=== PATIENT | female | born 1955 | race African-American/Black ===

== ENCOUNTER 2018-12-13 19:20 | Inpatient (IN) | payer MEDICARE, MEDICAID ==
[~2018-12-13] VITALS: Ht 175.3 cm; Wt 96.3 kg
[2018-12-13] MEDS ORDERED: SODIUM CHLORIDE 0.9% 1,000 ML IV ONE (19:34)
[2018-12-13 20:23] LABS: BASOPHILS % 0.6 % (0.0-2.0); EOSINOPHILS % 1.7 % (0.0-5.0); HEMATOCRIT. 36.2 % (36.0-48.0); HEMOGLOBIN. 12.3 g/dL (12.0-16.0); LYMPHOCYTES % 42.9 % (20.0-50.0); MEAN CORPUSCULAR HEMOGLOBIN 31.8 pg (28.0-32.0); MEAN CORPUSCULAR VOLUME 93.4 fL (81.0-99.0); MEAN PLATELET VOLUME 8.5 fl (7.4-10.4); MONOCYTES % 9.6 % (2.0-8.0); NEUTROPHILS % 45.2 % (40.0-76.0); PLATELET 166 x1000/uL (130-400); RED BLOOD CELL COUNT 3.88 mill/uL (4.2-5.4); RED CELL DISTRIBUTION WIDTH 13.1 % (11.6-14.6)
[2018-12-13 20:25] LABS: CHLORIDE 110 mEq/L (98-107)
[2018-12-13 20:26] LABS: INR 1.1; PROTHROMBIN TIME 10.9 sec (9.1-11.1)
[2018-12-13] MEDS ORDERED: LORAZEPAM 2MG/ML CPJ IV ONE ×2 (20:30→21:30)
[2018-12-14] MEDS ORDERED: MAGNESIUM/ALUMINUM HYDROXIDE/SIMETHICONE 30ML UDC PO PRN
[2018-12-14] MEDS ORDERED: CLONIDINE 0.1MG TABLET PO PRN
[2018-12-14] MEDS ORDERED: DIPHENHYDRAMINE 50MG/ML VIAL IV PRN
[2018-12-14] MEDS ORDERED: ONDANSETRON HCL 4MG/2ML INJ IV PRN
[2018-12-14] MEDS ORDERED: ACETAMINOPHEN 325MG TABLET PO PRN
[2018-12-14] MEDS ORDERED: ACETAMINOPHEN 650MG SUPP PR PRN
[2018-12-14] MEDS ORDERED: DOCUSATE SODIUM 100MG CAPSULE PO PRN
[2018-12-14] MEDS ORDERED: IPRATROPIUM/ALBUTEROL 0.5-3(2.5)MG/3ML NEB INH PRN
[2018-12-14] MEDS ORDERED: GUAIFENESIN 200MG/10ML SUGAR FREE UDC PO PRN
[2018-12-14] MEDS ORDERED: LEVETIRACETAM 500MG PREMIX 100 ML IV SCH (03:00)
[2018-12-14 06:10] LABS: BASOPHILS % 0.5 % (0.0-2.0); EOSINOPHILS % 1.9 % (0.0-5.0); HEMATOCRIT. 35.5 % (36.0-48.0); HEMOGLOBIN. 12.1 g/dL (12.0-16.0); LYMPHOCYTES % 45.6 % (20.0-50.0); MEAN CORPUSCULAR HEMOGLOBIN 31.8 pg (28.0-32.0); MEAN CORPUSCULAR VOLUME 93.5 fL (81.0-99.0); MEAN PLATELET VOLUME 8.4 fl (7.4-10.4); MONOCYTES % 11.4 % (2.0-8.0); NEUTROPHILS % 40.6 % (40.0-76.0); PLATELET 148 x1000/uL (130-400); RED CELL DISTRIBUTION WIDTH 13.1 % (11.6-14.6)
[2018-12-14 06:14] LABS: CHLORIDE 112 mEq/L (98-107)
[2018-12-14 06:26] LABS: LDL CHOLESTEROL 52 mg/dL (5-100)
[2018-12-14 06:27] LABS: HDL CHOLESTEROL 53 mg/dL (40-59)
[2018-12-14] MEDS ORDERED: NA PHOS,M-B/NA PHOS,DI-BA ENEMA 118ML PR PRN (09:00)
[2018-12-14 14:02] VITALS: BP 148/76
[2018-12-14] MEDS: LEVETIRACETAM 500MG TABLET PO SCH ×2 (15:18→23:17)
[2018-12-14 15:44] VITALS: BP 135/65
[2018-12-14 16:00] VITALS: BP 135/65
[2018-12-14 20:00] VITALS: BP 140/71
[2018-12-14] MEDS: SODIUM CHLORIDE 0.9% INJ 3ML FLUSH IVF SCH (21:18)
[2018-12-14 22:00] VITALS: BP 141/70
[2018-12-14 22:31] LABS: CLARITY URINE CLEAR (CLEAR); COLOR URINE YELLOW (YELLOW); KETONES URINE NEGATIVE (NEGATIVE); LEUKOCYTE ESTERASE URINE 1+ (NEGATIVE); NITRITE URINE NEGATIVE (NEGATIVE); OCCULT BLOOD URINE NEGATIVE (NEGATIVE); PH URINE 5.5 (4.5-8.0); PROTEIN URINE NEGATIVE (NEGATIVE); SPECIFIC GRAVITY URINE 1.019 (1.005-1.030)
[2018-12-14 22:41] LABS: *AMPHETAMINES SCREEN URINE NEGATIVE (NEGATIVE); *BARBITURATES SCREEN URINE NEGATIVE (NEGATIVE); *BENZODIAZEPINES SCREEN URINE NEGATIVE (NEGATIVE)
[2018-12-14 22:42] LABS: *COCAINE SCREEN URINE NEGATIVE (NEGATIVE); CANNABINOID URINE SCREEN NEGATIVE (NEGATIVE); METHADONE URINE SCREEN NEGATIVE (NEGATIVE); OPIATES URINE SCREEN NEGATIVE (NEGATIVE); PHENCYCLIDINE URINE SCREEN NEGATIVE (NEGATIVE)
[2018-12-15] VITALS (8 sets, daily range): BP systolic 121–145; BP diastolic 58–78
[2018-12-15] MEDS: SODIUM CHLORIDE 0.9% INJ 3ML FLUSH IVF SCH ×2 (06:01→14:00)
[2018-12-15] MEDS: LEVETIRACETAM 500MG TABLET PO SCH (08:23)
[2018-12-15] MEDS ORDERED: BENA5TAB6 MT (08:36)
[2018-12-15] MEDS ORDERED: AMLO2.5T2 MT (08:36)
[2018-12-15] MEDS ORDERED: BUPR75TA8 MT (08:36)
[2018-12-15] MEDS ORDERED: GLIM1TAB2 MT (08:36)
[2018-12-15] MEDS ORDERED: SIMV10TA2 MT (08:37)
[2018-12-15] MEDS ORDERED: KEPP500 MT (15:05)
== END 2018-12-15 15:57 | disposition home or self-care (01) | DRG 100 ==
LOC: ER 19:20 → EDBEDREQTM 21:32 → EDBEDREQ 21:32 → EDBEDREQSVC 21:32 → ENRESERV 12-14 09:57 → 3WST 12-14 14:00 → 8WST 12-15 10:19
PROVIDERS: ADMIT Family Medicine; ATTEND Family Medicine
DX: G40.909 Epilepsy, unspecified, not intractable, without status epilepticus (principal); G93.41 Metabolic encephalopathy; N18.6 End stage renal disease; I12.0 Hypertensive chronic kidney disease with stage 5 chronic kidney disease or end stage renal disease; E11.22 Type 2 diabetes mellitus with diabetic chronic kidney disease; E78.5 Hyperlipidemia, unspecified; F41.9 Anxiety disorder, unspecified; Z87.891 Personal history of nicotine dependence; Z99.2 Dependence on renal dialysis; Z88.6 Allergy status to analgesic agent; Z79.899 Other long term (current) drug therapy
CPT/HCPCS: 36415; 71045; 80061; 80305; 82962; 83605; 83880; 84484; 93005; 96361; 96374; 96376; 99285; J1953; J2060; J7030

== ENCOUNTER 2019-07-11 13:30 | Emergency (ER) | payer MEDICARE, MEDICAID ==
[~2019-07-11] VITALS: Ht 172.7 cm; Wt 74.0 kg
[~2019-07-11 13:30] MED LIST: AMLO2.5T2 MT; BENA5TAB6 MT; BUPR75TA8 MT; GLIM1TAB2 MT; KEPP500 MT; SIMV10TA2 MT
[2019-07-11] MEDS ORDERED: ONDANSETRON HCL 4MG/2ML INJ IV STA (14:47)
[2019-07-11] MEDS ORDERED: SODIUM CHLORIDE 0.9% 1,000 ML IV ONE (14:47)
[2019-07-11] MEDS ORDERED: MORPHINE SULFATE 4 MG/ML CPJ (NOT FOR IM USE) IV STA (14:47)
[2019-07-11] MEDS ORDERED: LIDOCAINE 1%/EPI 1:100,000 10 ML VIAL IJ ONE (15:00)
[2019-07-11] MEDS ORDERED: LEVETIRACETAM 1000MG/100ML 100 ML IV ONE (15:00)
[2019-07-11] MEDS ORDERED: TETANUS, DIPHTHERIA, PERTUSSIS VAC/PF 0.5ML (>7YR OLD) IM ONE (15:00)
[2019-07-11 15:02] LABS: BASOPHILS % 0.5 % (0.0-2.0); EOSINOPHILS % 1.6 % (0.0-5.0); HEMATOCRIT. 37.6 % (36.0-48.0); LYMPHOCYTES % 35.3 % (20.0-50.0); MEAN CORPUSCULAR HEMOGLOBIN 30.2 pg (28.0-32.0); MEAN CORPUSCULAR VOLUME 87.2 fL (81.0-99.0); MEAN PLATELET VOLUME 8.5 fl (7.4-10.4); MONOCYTES % 8.9 % (2.0-8.0); NEUTROPHILS % 53.7 % (40.0-76.0); PLATELET 169 x1000/uL (130-400); RED BLOOD CELL COUNT 4.31 mill/uL (4.2-5.4); RED CELL DISTRIBUTION WIDTH 14.6 % (11.6-14.6)
[2019-07-11 15:09] LABS: CHLORIDE 101 mEq/L (98-107)
[2019-07-11 15:10] LABS: PROTHROMBIN TIME 10.5 sec (9.6-11.0)
[2019-07-11 15:14] LABS: ETHANOL BLOOD < 10 mg/dL
[2019-07-11] MEDS ORDERED: POTASSIUM CHLORIDE 20MEQ TABLET SR PO ONE (15:15)
[2019-07-11] MEDS ORDERED: LIDOCAINE HCL/EPINEPHRINE 1%-EPI 1:100,000 20 ML VIAL INFIL NR (15:15)
[2019-07-11] MEDS ORDERED: ACETAMINOPHEN 325MG TABLET PO ONE (15:15)
[2019-07-11 15:22] LABS: CARBAMAZEPINE < 0.5 ug/mL (4-12); PHENOBARBITAL < 2.1 ug/mL (15.0-40.0)
[2019-07-11 15:38] LABS: CLARITY URINE CLEAR (CLEAR); COLOR URINE YELLOW (YELLOW); KETONES URINE NEGATIVE (NEGATIVE); LEUKOCYTE ESTERASE URINE TRACE (NEGATIVE); NITRITE URINE NEGATIVE (NEGATIVE); OCCULT BLOOD URINE NEGATIVE (NEGATIVE); PROTEIN URINE TRACE (NEGATIVE); SPECIFIC GRAVITY URINE 1.006 (1.005-1.030); UROBILINOGEN URINE 0.2 E.U./dL (0.2-1.0)
[2019-07-11 15:49] LABS: *AMPHETAMINES SCREEN URINE NEGATIVE (NEGATIVE); *BARBITURATES SCREEN URINE NEGATIVE (NEGATIVE); *BENZODIAZEPINES SCREEN URINE NEGATIVE (NEGATIVE); *COCAINE SCREEN URINE NEGATIVE (NEGATIVE); CANNABINOID URINE SCREEN PRESUMTIVE POSITIVE (NEGATIVE); PHENCYCLIDINE URINE SCREEN NEGATIVE (NEGATIVE)
[2019-07-11 15:50] LABS: METHADONE URINE SCREEN NEGATIVE (NEGATIVE); OPIATES URINE SCREEN NEGATIVE (NEGATIVE)
[2019-07-11] MEDS ORDERED: CEFTRIAXONE 1 G PREMIX 50 ML IV ONE (16:00)
[2019-07-11 19:40] VITALS: BP 136/67
== END 2019-07-11 20:12 | disposition home or self-care (01) ==
LOC: ER 13:30
DX: S01.01XA Laceration without foreign body of scalp, initial encounter (principal); S01.81XA Laceration without foreign body of other part of head, initial encounter; G40.909 Epilepsy, unspecified, not intractable, without status epilepticus; N39.0 Urinary tract infection, site not specified; F19.10 Other psychoactive substance abuse, uncomplicated; E87.6 Hypokalemia; X58.XXXA Exposure to other specified factors, initial encounter; Y93.89 Activity, other specified; Y92.89 Other specified places as the place of occurrence of the external cause; Y99.8 Other external cause status
CPT/HCPCS: 12004; 36415; 70450; 71045; 80053; 80156; 80165; 80184; 80185; 80305; 80320; 81003; 82962; 83605; 84484; 85025; 85610; 87086; 90715; 93005; 96365; 96375; 99284; J0696; J1953; J2270; J2405; J3490; J7030; G0480

== ENCOUNTER 2021-08-08 14:57 | Inpatient (IN) | payer MEDICARE, MEDICAID ==
[~2021-08-08] VITALS: Ht 177.8 cm; Wt 86.2 kg
[~2021-08-08 14:57] MED LIST changes: +GLIM1TAB MT; -GLIM1TAB2 MT
[2021-08-08] MEDS ORDERED: SODIUM CHLORIDE 0.9% 1,000 ML IV ONE (15:30)
[2021-08-08 15:46] LABS: BASOPHILS % 0.3 % (0.0-2.0); HEMATOCRIT. 32.7 % (36.0-48.0); HEMOGLOBIN. 11.4 g/dL (12.0-16.0); LYMPHOCYTES % 32.3 % (20.0-50.0); MEAN CORPUSCULAR HEMOGLOBIN 31.4 pg (28.0-32.0); MEAN CORPUSCULAR VOLUME 89.7 fL (81.0-99.0); MEAN PLATELET VOLUME 7.8 fl (7.4-10.4); MONOCYTES % 6.4 % (2.0-8.0); PLATELET 187 x1000/uL (130-400); RED BLOOD CELL COUNT 3.65 mill/uL (4.2-5.4); RED CELL DISTRIBUTION WIDTH 12.9 % (11.6-14.6)
[2021-08-08 15:53] LABS: CHLORIDE 108 mEq/L (98-107)
[2021-08-08 18:57] LABS: CLARITY URINE CLEAR (CLEAR); COLOR URINE YELLOW (YELLOW); KETONES URINE NEGATIVE (NEGATIVE); LEUKOCYTE ESTERASE URINE TRACE (NEGATIVE); NITRITE URINE NEGATIVE (NEGATIVE); OCCULT BLOOD URINE NEGATIVE (NEGATIVE); PH URINE 5.5 (4.5-8.0); PROTEIN URINE NEGATIVE (NEGATIVE); SPECIFIC GRAVITY URINE 1.007 (1.005-1.030)
[2021-08-08] MEDS ORDERED: DEXTROSE 50% WATER 50ML SYRINGE IV PRN (21:00)
[2021-08-08] MEDS ORDERED: LEVETIRACETAM 500 MG in SODIUM CHLORIDE 0.9% 100 ML IV SCH (21:00)
[2021-08-08] MEDS ORDERED: ACETAMINOPHEN 325MG TABLET PO PRN ×2 (21:00)
[2021-08-08] MEDS ORDERED: DIPHENHYDRAMINE 50MG/ML VIAL IV PRN (21:00)
[2021-08-08] MEDS ORDERED: ONDANSETRON HCL 4MG/2ML INJ IV PRN (21:00)
[2021-08-08] MEDS ORDERED: LORAZEPAM 2MG/ML CPJ IV PRN (21:00)
[2021-08-08] MEDS ORDERED: CLONIDINE 0.1MG TABLET PO PRN (21:00)
[2021-08-08] MEDS ORDERED: HYDRALAZINE 20MG/ML VIAL IV PRN ×2 (21:00→21:15)
[2021-08-08] MEDS: INSULIN LISPRO 100 UNITS/ML SUBCUT SCH (21:30)
[2021-08-08] MEDS ORDERED: LEVETIRACETAM 500MG PREMIX 100 ML IV SCH (21:30)
[2021-08-08] MEDS: SODIUM CHLORIDE 0.9% 1,000 ML IV SCH (22:17)
[2021-08-08] MEDS: BLOOD SUGAR DIAGNOSTIC STRIP TEST SCH (22:17)
[2021-08-09] VITALS (7 sets, daily range): BP systolic 140–169; BP diastolic 51–95
[2021-08-09] MEDS ORDERED: QUET300T2 MT (00:08)
[2021-08-09] MEDS ORDERED: PANT40TA51 MT (00:08)
[2021-08-09] MEDS ORDERED: QUET100T MT (00:08)
[2021-08-09] MEDS ORDERED: AMIT-188 MT (00:08)
[2021-08-09] MEDS ORDERED: LORAZEPAM 2MG/ML CPJ IV PRN (01:15)
[2021-08-09] MEDS ORDERED: AMITRIPTYLINE 50MG TABLET PO SCH (02:00)
[2021-08-09] MEDS: AMITRIPTYLINE 25MG TABLET PO SCH ×2 (02:07→21:17)
[2021-08-09] MEDS: INSULIN LISPRO 100 UNITS/ML SUBCUT SCH ×4 (06:01→21:00)
[2021-08-09] MEDS: BLOOD SUGAR DIAGNOSTIC STRIP TEST SCH ×4 (06:01→21:00)
[2021-08-09] MEDS: SODIUM CHLORIDE 0.9% 1,000 ML IV SCH ×2 (06:01→16:31)
[2021-08-09 06:19] LABS: BASOPHILS % 0.5 % (0.0-2.0); HEMATOCRIT. 32.5 % (36.0-48.0); HEMOGLOBIN. 11.2 g/dL (12.0-16.0); LYMPHOCYTES % 52.1 % (20.0-50.0); MEAN CORPUSCULAR HEMOGLOBIN 31.2 pg (28.0-32.0); MEAN CORPUSCULAR VOLUME 90.4 fL (81.0-99.0); MEAN PLATELET VOLUME 8.5 fl (7.4-10.4); NEUTROPHILS % 34.4 % (40.0-76.0); PLATELET 157 x1000/uL (130-400); RED CELL DISTRIBUTION WIDTH 12.9 % (11.6-14.6)
[2021-08-09 06:58] LABS: PHOSPHORUS 2.9 mg/dL (2.5-4.9)
[2021-08-09] MEDS: BUPROPION HCL 75MG TABLET PO SCH ×2 (09:03→21:17)
[2021-08-09] MEDS: AMLODIPINE 5MG TABLET PO SCH (09:03)
[2021-08-09] MEDS: BENAZEPRIL 10MG TABLET PO SCH (09:03)
[2021-08-09 09:12] LABS: *AMPHETAMINES SCREEN URINE NEGATIVE (NEGATIVE); *BARBITURATES SCREEN URINE NEGATIVE (NEGATIVE); *BENZODIAZEPINES SCREEN URINE NEGATIVE (NEGATIVE); *COCAINE SCREEN URINE NEGATIVE (NEGATIVE); METHADONE URINE SCREEN NEGATIVE (NEGATIVE)
[2021-08-09 09:13] LABS: CANNABINOID URINE SCREEN PRESUMTIVE POSITIVE (NEGATIVE); OPIATES URINE SCREEN PRESUMTIVE POSITIVE (NEGATIVE); PHENCYCLIDINE URINE SCREEN NEGATIVE (NEGATIVE)
[2021-08-09] MEDS ORDERED: KETOROLAC 30MG/ML VIAL IV PRN (11:45)
[2021-08-09] MEDS ORDERED: TRAMADOL 50MG TABLET PO PRN (12:45)
[2021-08-09] MEDS ORDERED: NALOXONE HCL 0.4MG/ML VIAL IV PRN (13:30)
[2021-08-09] MEDS ORDERED: HYDROCODONE/ACETAMINOPHEN 5/325MG TABLET PO PRN (13:30)
[2021-08-09] MEDS: BACLOFEN 10MG TABLET PO SCH ×2 (14:02→22:53)
[2021-08-09] MEDS ORDERED: ATORVASTATIN CALCIUM 20MG TABLET PO SCH (21:00)
[2021-08-09] MEDS ORDERED: QUETIAPINE FUMARATE 50MG TABLET PO SCH (21:00)
[2021-08-10] VITALS: BP 140/95
[2021-08-10] MEDS: SODIUM CHLORIDE 0.9% 1,000 ML IV SCH ×2 (02:47→12:45)
[2021-08-10 04:00] VITALS: BP 136/59
[2021-08-10] MEDS: BACLOFEN 10MG TABLET PO SCH ×2 (05:38→12:50)
[2021-08-10] MEDS: BLOOD SUGAR DIAGNOSTIC STRIP TEST SCH ×2 (06:40→11:34)
[2021-08-10] MEDS: INSULIN LISPRO 100 UNITS/ML SUBCUT SCH ×2 (07:10→11:34)
[2021-08-10 08:00] VITALS: BP 157/69
[2021-08-10] MEDS: AMLODIPINE 5MG TABLET PO SCH (08:10)
[2021-08-10] MEDS: BUPROPION HCL 75MG TABLET PO SCH (08:10)
[2021-08-10] MEDS: BENAZEPRIL 10MG TABLET PO SCH (08:11)
[2021-08-10 08:30] VITALS: BP 157/69
== END 2021-08-10 15:45 | disposition home or self-care (01) | DRG 391 ==
LOC: ER 14:57 → 7EST 19:53 → EDBEDREQ 19:55 → EDBEDREQTM 19:55 → ENRESERV 21:20
PROVIDERS: ADMIT Internal Medicine; ATTEND Internal Medicine
DX: K52.9 Noninfective gastroenteritis and colitis, unspecified (principal); N17.0 Acute kidney failure with tubular necrosis; G40.909 Epilepsy, unspecified, not intractable, without status epilepticus; I12.9 Hypertensive chronic kidney disease with stage 1 through stage 4 chronic kidney disease, or unspecified chronic kidney disease; N18.9 Chronic kidney disease, unspecified; E11.22 Type 2 diabetes mellitus with diabetic chronic kidney disease; E78.00 Pure hypercholesterolemia, unspecified; F41.1 Generalized anxiety disorder; G89.29 Other chronic pain; M54.5 Low back pain; Z60.2 Problems related to living alone; Z82.49 Family history of ischemic heart disease and other diseases of the circulatory system; Z83.3 Family history of diabetes mellitus; Z88.6 Allergy status to analgesic agent; Z79.899 Other long term (current) drug therapy; Z79.84 Long term (current) use of oral hypoglycemic drugs
CPT/HCPCS: 36415; 80048; 80053; 80305; 81003; 82962; 83036; 83735; 84100; 85025; 93005; 97161; 97162; 99285; J1815; J1885; J1953; J2060; J2405; J7040; J7042

== ENCOUNTER 2023-07-26 15:51 | Emergency (ER) | payer MEDICARE, MEDICAID ==
[~2023-07-26] VITALS: Ht 170.2 cm; Wt 63.0 kg
[~2023-07-26 15:51] MED LIST changes: +AMIT50TA4 MT; +BENA5TAB40 MT; -BENA5TAB6 MT; +PANT40TA51 MT; +QUET100T MT; +QUET300T2 MT; +SIMV-341 MT; -SIMV10TA2 MT
[2023-07-26 15:56] VITALS: BP 155/103; PULSE 100; RESP 18; TEMP 98.7; O2SAT 100
[2023-07-26] MEDS ORDERED: SODIUM CHLORIDE 0.9% 1,000 ML IV ONE (16:30)
[2023-07-26] MEDS ORDERED: ONDANSETRON HCL 4MG/2ML INJ IV STA (16:30)
[2023-07-26 16:47] LABS: BASOPHILS % 0.5 % (0.0-2.0); EOSINOPHILS % 0.6 % (0.0-5.0); HEMATOCRIT. 37.6 % (36.0-48.0); HEMOGLOBIN. 12.9 g/dL (12.0-16.0); LYMPHOCYTES % 29.7 % (20.0-50.0); MEAN CORPUSCULAR HEMOGLOBIN 30.5 pg (28.0-32.0); MEAN CORPUSCULAR HGB CONC 34.4 g/dL (31.0-37.0); MEAN CORPUSCULAR VOLUME 88.6 fL (81.0-99.0); MEAN PLATELET VOLUME 8.8 fl (7.4-10.4); MONOCYTES % 7.9 % (2.0-8.0); NEUTROPHILS % 61.3 % (40.0-76.0); PLATELET 258 x1000/uL (130-400); RED BLOOD CELL COUNT 4.24 mill/uL (4.2-5.4)
[2023-07-26 16:49] LABS: CHLORIDE 100 mEq/L (98-107); INDEX HEMOLYSI 1 (1-3); INDEX ICTERIC 1 (1-4); INDEX LIPEMIC 1 (1-3); POTASSIUM 3.7 mEq/L (3.5-5.1); SODIUM 134 mEq/L (136-145)
[2023-07-26 16:57] LABS: ALANINE AMINOTRANSFERASE 35 IU/L (13-61); ALBUMIN 4.5 g/dL (3.4-5.0); ASPARTATE AMINOTRANSFERASE 26 IU/L (15-37); BILIRUBIN TOTAL 0.5 mg/dL (0.1-1.0); CALCIUM 10.2 mg/dL (8.5-10.1); CARBON DIOXIDE 25 mEq/L (21-32); CREATININE 2.7 mg/dL (0.6-1.3); GLUCOSE 169 mg/dL (70-105); PROTEIN TOTAL 8.7 g/dL (6.0-8.3); UREA NITROGEN BLOOD 60 mg/dL (7-21)
[2023-07-26 17:41] LABS: CLARITY URINE CLEAR (CLEAR); COLOR URINE YELLOW (YELLOW); GLUCOSE URINE NEGATIVE (NEGATIVE); KETONES URINE NEGATIVE (NEGATIVE); LEUKOCYTE ESTERASE URINE TRACE (NEGATIVE); NITRITE URINE NEGATIVE (NEGATIVE); OCCULT BLOOD URINE NEGATIVE (NEGATIVE); PH URINE 5.5 (4.5-8.0); PROTEIN URINE 1+ (NEGATIVE); SPECIFIC GRAVITY URINE 1.019 (1.005-1.030); UROBILINOGEN URINE 0.2 E.U./dL (0.2-1.0)
[2023-07-26 17:43] LABS: RBC URINE 0-2 /hpf (0-2); YEAST URINE NONE SEEN
[2023-07-26 18:07] LABS: BACTERIA URINE 1+; SQUAMOUS EPITHELIAL CELL URINE FEW /lpf (RARE/1+)
== END 2023-07-26 20:23 | disposition left against medical advice (07) ==
LOC: ER 15:51 → CANBEDREQ 21:44
DX: R10.13 Epigastric pain (principal); R11.10 Vomiting, unspecified; F41.9 Anxiety disorder, unspecified; E11.9 Type 2 diabetes mellitus without complications; I10 Essential (primary) hypertension
CPT/HCPCS: 99284; 96374; 96361; 80053; 81003; 83690; 85025; 36415; 93005; J2405; J7030